=== PATIENT | male | born 1980 | race Hispanic/Latino ===

== ENCOUNTER 2021-05-21 14:27 | Emergency (ER) | payer OTHER, SELFPAY ==
[2021-05-21] VITALS (13 sets, daily range): BP systolic 123–163; BP diastolic 74–93; PULSE 67–88; RESP 16–20; TEMP 36.4; O2SAT 97–99
--- NOTE | 2021-05-21 14:34 | DI.RAD.S_ITS ---
PROCEDURE: XR CHEST 2V INDICATIONS: chest pain TECHNIQUE: 2 views of the chest were acquired. COMPARISON: None. FINDINGS: Surgical changes and devices: None. Lungs and pleura: Lungs are clear. No pleural effusions or pneumothorax. Mediastinum: Mediastinal contours are normal. Heart size is normal. Bones and chest wall: No suspicious bony abnormalities. Soft tissues appear unremarkable. IMPRESSION: Normal two view chest x-ray Approved by: Juliocesar Lind M.D. on 05/21/2021 at 14:38
[2021-05-21 15:43] LABS: Add Manual Diff / Slide Review NO; Basophils Absolute Auto 0 /uL (0-100); Basophils Percent Auto 0.5 % (0-2); Eosinophils Absolute Auto 100 /uL (0-450); Eosinophils Percent Auto 1.1 % (2-4); Hemoglobin 16.3 g/dL (13.5-17.5); Lymphocytes Absolute Auto 2300 /uL (1100-4500); Mean Corpuscular HGB Conc 34.6 % (30-36); Mean Corpuscular Hemoglobin 30.6 PG (26-34); Mean Corpuscular Volume 88.3 fL (80-100); Monocytes Absolute Auto 600 /uL (0-900); Neutrophils Absolute Auto 4400 /uL (1500-7000); Neutrophils Percent Auto 59.4 % (50-75); Platelet Count 276 X10^3/uL (150-400); Red Blood Cell Count 5.32 X10^6/uL (4.5-5.9); Red Cell Distribution Width 13.9 % (11.6-14.8); White Blood Cell Count 7.4 X10^3/uL (4.5-11.0)
[2021-05-21 16:07] LABS: Alanine Aminotransferase 57 IU/L (<50); Albumin Globulin Ratio 1.3 (1.0-2.8); Alkaline Phosphatase 85 U/L (38-126); Aspartate Aminotransferase 41 IU/L (17-59); BUN Creatinine Ratio 11.4 (6-22); Bilirubin Total 0.4 mg/dL (0.2-1.3); Blood Urea Nitrogen 13 mg/dL (9-20); Calcium 9.5 mg/dL (8.4-10.2); Carbon Dioxide 31 mmol/L (22-32); Chloride 103 mmol/L (98-107); Creatine Kinase 105 U/L (55-170); Estimated Glomerular Filt Rate > 60 mL/min (>60); Globulin 3.9 g/dL (1.7-4.1); Glucose 137 mg/dL (70-100); HEMOLYSIS < 15 (0-50); Lipase 70 U/L (23-300); Magnesium 2.2 mg/dL (1.6-2.3); Potassium 4.1 mmol/L (3.4-5.1); Sodium 142 mmol/L (137-145); Total Protein 8.9 g/dL (6.3-8.2)
[2021-05-21 16:18] LABS: Troponin I < 0.012 ng/mL (0.01-0.034)
[2021-05-21 16:25] LABS: CKMB % Relative Index 0.5 % (1.5-5.0); Creatine Kinase MB 0.49 ng/mL (<2.37)
--- NOTE | 2021-05-21 17:48 | ED.CHESTPAIN ---
HPI - Chest Pain General Chief Complaint: Chest Pain Stated Complaint: Light headed, left chest pain Time Seen by Provider: 05/21/21 16:18 Source: patient Mode of arrival: Ambulatory History of Present Illness HPI narrative: The patient is a 41-year-old male without any past medical history presenting today with some lightheadedness and has left shoulder pain. He actually states that he has had some chronic ongoing left shoulder issues however today it is radiating across to his chest. He feels sharp shooting pain across his left chest. It is worse with arm movement. He does exercise but has not been able to due to his left shoulder. Today he is actually worried disease a little lightheaded. Lightheadedness comes and goes it is with arrest and standing. It does not last long. He denies any nausea vomiting. He is not dizzy. He has no numbness tingling or weakness. Overall feeling better. It is been ongoing since last evening as well Related Data Allergies Allergy/AdvReac Type Severity Reaction Status Date / Time No Known Drug Allergies Allergy Verified 05/21/21 14:34 Review of Systems Review of Systems Narrative: GENERAL: Denies chills, fatigue, malaise, fever, sweats, travel HEENT: Denies sinus pain, ear pain, sore throat, difficulty swallowing, neck pain RESPIRATORY: Denies dyspnea, cough, wheezing, hemoptysis, sputum. CARDIOVASCULAR: Denies chest pain, palpitations, orthopnea, edema GASTROINTESTINAL: Denies nausea, vomiting, abdominal pain, diarrhea, constipation, melena. : Denies dysuria, frequency, incontinence, hematuria, urinary retention, flank pain. MUSCULOSKELETAL: See HPI SKIN: No rash, no erythema, no pruritus NEUROLOGIC: See HPI PSYCHIATRIC: No concerning psychosocial issues. 12 point review of systems is negative except for those stated above and HPI Patient History Social History Smoking Status: Never smoker Smoking Status: Never smoker Exam Initial Vital Signs Initial Vital Signs: Vital Signs Temperature 97.5 F L 05/21/21 14:31 Pulse Rate 88 05/21/21 14:31 Respiratory Rate 16 05/21/21 14:31 Blood Pressure 155/93 H 05/21/21 14:31 Pulse Oximetry 99 05/21/21 14:31 GENERAL: Alert well-appearing 41-year-old male in no acute distress. HEENT: Head atraumatic,EOMI, pupils reactive, no nystagmus face symmetric, moist mucous membranes CARDIOVASCULAR: Regular rate and rhythm without murmurs, rubs or gallops. RESPIRATORY: Breath sounds equal bilaterally, no wheezes rales or rhonchi. ABDOMEN: Soft, nontender. Normoactive bowel sounds all 4 quadrants. No guarding or rebound. EXTREMITIES: Normal range of motion, no clubbing or edema. Neurovascularly intact Pain is reproducible with movement of the left shoulder and palpation. NEUROLOGICAL: Alert and oriented x4.Normal gait and speech. Cranial nerves II through XII grossly intact. [employer] strength equal bilaterally lower extremity strength equal SKIN: Warm, dry, no laceration, no petechiae, no rashes or lesions. Scores HEART Score Heart Score history: Slightly Suspicious Heart Score EKG: Normal Heart Score Age: < 45 years old Heart Score risk factors: No known risk factors Heart Score troponin: < or = to normal limit Heart Score Total: 0 Course Orders Ordered: ED Orders 05/21/21 14:34 XR chest 1V Stat EKG-12 Lead Stat 05/21/21 15:29 Complete Blood Count AUTO DIFF Stat Comprehensive Metabolic Panel Stat Lipase Stat Magnesium Stat Troponin & CK Cardiac Panel Stat Discontinued Medications Sodium Chloride (Normal Saline 0.9%) 1,000 mls @ 1,000 mls/hr IV BOLUS ONE Stop: 05/21/21 18:56 Last Infusion: 05/21/21 19:41 Dose: 0 mls/hr Documented by: Admin: 05/21/21 18:16 Dose: 1,000 mls/hr Documented by: JUANITA Ketorolac Tromethamine (Ketorolac 30 Mg/Ml Vial) 15 mg IV NOW ONE Stop: 05/21/21 19:30 Last Admin: 05/21/21 19:35 Dose: 15 mg Documented by: RAYMOND Vital Signs Vital signs: Vital Signs - 8 hr 05/21/21 14:31 05/21/21 15:54 05/21/21 15:55 Temperature 97.5 F L Pulse Rate 88 85 Respiratory Rate 16 20 Blood Pressure 155/93 H 163/93 H Pulse Oximetry 99 98 05/21/21 16:00 05/21/21 16:30 05/21/21 17:00 Temperature Pulse Rate 73 72 69 Respiratory Rate Blood Pressure Pulse Oximetry 97 98 99 05/21/21 17:09 05/21/21 17:30 05/21/21 18:00 Temperature Pulse Rate 70 77 67 Respiratory Rate Blood Pressure 137/79 130/81 128/82 Pulse Oximetry 98 98 97 05/21/21 18:30 05/21/21 19:00 05/21/21 19:30 Temperature Pulse Rate 72 83 83 Respiratory Rate Blood Pressure 123/74 130/77 Pulse Oximetry 98 99 98 05/21/21 19:31 Temperature Pulse Rate 80 Respiratory Rate Blood Pressure 141/80 H Pulse Oximetry 99 MDM - Chest Pain Lab Data Result diagrams: 05/21/21 15:29 05/21/21 15:29 Labs: Lab Results 05/21/21 05/21/21 Range/Units 15:29 15:29 WBC 7.4 (4.5-11.0) X10^3/uL RBC 5.32 (4.5-5.9) X10^6/uL Hgb 16.3 (13.5-17.5) g/dL Hct 47.0 (41-53) % MCV 88.3 (80-100) fL MCH 30.6 (26-34) PG MCHC 34.6 (30-36) % RDW 13.9 (11.6-14.8) % Plt Count 276 (150-400) X10^3/uL Neut % (Auto) 59.4 (50-75) % Lymph % (Auto) 31.0 (25-40) % [place] % (Auto) 8.0 (3-14) % Eos % (Auto) 1.1 L (2-4) % Baso % (Auto) 0.5 (0-2) % Neut # (Auto) 4400 (7473-8723) /uL Lymph # (Auto) 2300 (9547-6318) /uL [place] # (Auto) 600 (0-900) /uL Eos # (Auto) 100 (0-450) /uL Baso # (Auto) 0 (0-100) /uL Sodium 142 (137-145) mmol/L Potassium 4.1 (3.4-5.1) mmol/L Chloride 103 (98-107) mmol/L Carbon Dioxide 31 (22-32) mmol/L BUN 13 (9-20) mg/dL Creatinine 1.14 (0.66-1.25) mg/dL Estimated GFR > 60 (>60) mL/min BUN/Creatinine Ratio 11.4 (6-22) Glucose 137 H (70-100) mg/dL Calcium 9.5 (8.4-10.2) mg/dL Magnesium 2.2 (1.6-2.3) mg/dL Total Bilirubin 0.4 (0.2-1.3) mg/dL AST 41 (17-59) IU/L ALT 57 H (<50) IU/L Alkaline Phosphatase 85 (38-126) U/L Total Creatine Kinase 105 (55-170) U/L CK-MB (CK-2) 0.49 (<2.37) ng/mL CK-MB (CK-2) Rel Index 0.5 L (1.5-5.0) % Troponin I < 0.012 (0.01-0.034) ng/mL Total Protein 8.9 H (6.3-8.2) g/dL Albumin 5.0 (3.5-5.0) g/dL Globulin 3.9 (1.7-4.1) g/dL Albumin/Globulin Ratio 1.3 (1.0-2.8) Lipase 70 (23-300) U/L Imaging Data Chest x-ray: Radiologist's Impression: [address] [address] XRay Report Signed Patient: Nasrin Clark MR#: [id number] : 1980 Acct:[id number] Age/Sex: 41 / M Date of Service: 05/21/21 Loc: ED Accession Number: [id number] ?? Procedure: XR chest 1V Ordering Provider: Samira Tillman D.O. PROCEDURE:? XR CHEST 2V ? INDICATIONS:? chest pain ? TECHNIQUE:? 2 views of the chest were acquired.? ? COMPARISON:? None. ? FINDINGS:? ? Surgical changes and devices:? None.? ? Lungs and pleura:? Lungs are clear.? No pleural effusions or pneumothorax.? ? Mediastinum:? Mediastinal contours are normal.? Heart size is normal.? ? Bones and chest wall:? No suspicious bony abnormalities.? Soft tissues appear unremarkable.? ? IMPRESSION:? Normal two view chest x-ray ? ? ? Approved by: Juliocesar Lind M.D. on 05/21/2021 at 14:38? ECG Data Interpretation: Normal sinus rhythm rate 81 [place] interval 208 QRS 100 QTC 404 T-wave inversion noted in V6 only incomplete right bundle-branch block noted, no priors MDM Narrative Medical decision making narrative: Patient's pain is definitely worse with movement and palpation. More consistent with musculoskeletal pain rather than cardiac in nature. It has also been going on since last evening he is at normal EKG and negative troponin. Lightheadedness seems very mild. He has no nystagmus no focal deficits. Feeling significantly better after fluids and Toradol. Discharge Plan Departure Patient Disposition: Home Clinical Impression: Left shoulder strain Instructions: DI for Shoulder Pain Activity Restrictions/Additional Instructions: *You have been diagnosed with left shoulder strain *What to do: At this time her chest discomfort is likely related to your shoulder. Be sure to increase her fluid intake it will likely help your lightheadedness. *Continue to take medications as directed *Follow up with your primary care provider in 2-3 days or call [phone] *Return to ER if you should have increasing pain, dizziness, palpitations, passing out or any new, worsening or concerning symptoms
[2021-05-21] MEDS: SODIUM CHLORIDE 0.9% 1,000 ML 1000 ML IV (18:16)
[2021-05-21] MEDS: KETOROLAC 30 MG/ML VIAL 15 MG IV (19:35)
== END 2021-05-21 19:50 | disposition home or self-care (01) ==
PROVIDERS: Emergency Provider Emergency Medicine
DX: S46.912A Strain of unspecified muscle, fascia and tendon at shoulder and upper arm level, left arm, initial encounter (principal); R42 Dizziness and giddiness; R07.9 Chest pain, unspecified; I45.10 Unspecified right bundle-branch block; X58.XXXA Exposure to other specified factors, initial encounter
CPT/HCPCS: 36415; 71045; 80053; 82550; 82553; 83690; 83735; 84484; 85025; 93005; 93010; 96374; 99284; J1885